=== PATIENT | male | born 1950 ===

== ENCOUNTER 2017-09-05 10:14 | Emergency (ER) | payer MEDICARE ==
[2017-09-05 10:21] VITALS: BP 168/109; PULSE 65; RESP 18; TEMP 97.7; O2SAT 98
--- NOTE | 2017-09-05 10:47 | C.PDOC ---
History Of Present Illness 67 y/o male presents to the ER complaining of minor pruritus in the left axilla which has been present for the past 1 week. Patient is also complaining of dark discoloration. Patient denies having fungal infection. Time Seen by Provider: 09/05/17 10:44 Chief Complaint (Nursing): Abnormal Skin Integrity History Per: Patient History/Exam Limitations: no limitations Onset/Duration Of Symptoms: Days Current Symptoms Are (Timing): Still Present Quality Of Symptoms: Itching Severity: Moderate Past Medical History Reviewed: Historical Data, Nursing Documentation, Vital Signs Vital Signs: Last Vital Signs Temp 97.7 F 09/05/17 10:18 Pulse 65 09/05/17 10:18 Resp 18 09/05/17 10:58 BP 168/109 H 09/05/17 10:18 Pulse Ox 98 09/05/17 12:07 - Medical History PMH: HTN Other Surgeries: Hx of surgeries Family History: States: No Known Family Hx - Social History Hx Tobacco Use: No Hx Alcohol Use: No Hx Substance Use: No - Immunization History Hx Tetanus Toxoid Vaccination: No Hx Influenza Vaccination: No Hx Pneumococcal Vaccination: No Review Of Systems Except As Marked, All Systems Reviewed And Found Negative. Constitutional: Negative for: Fever, Chills Skin: Positive for: Other (discoloration and pruritus of left axilla) Physical Exam - Physical Exam Appears: Non-toxic, No Acute Distress, Other (obese, male) Skin: Warm, Other (1 dark 6 x6 cm patch with dry and flaky leading edge, no cellulitis, no erythema) Head: Atraumatic, Normacephalic Eye(s): bilateral: Normal Inspection Nose: Normal Oral Mucosa: Moist Neck: Supple Chest: Symmetrical Extremity: Normal ROM Neurological/Psych: Oriented x3, Normal Speech, Normal Motor, Normal Sensation ED Course And Treatment O2 Sat by Pulse Oximetry: 98 (RA) Pulse Ox Interpretation: Normal Progress Note: Patient has been discharged with prescription for Nizoral cream. Medical Decision Making Medical Decision Making: dark patch with moist area and leading edge scaling c/w fungal infection high prob due to obese axillary areas Disposition Doctor Will See Patient In The: Office Counseled Patient/Family Regarding: Studies Performed, Diagnosis - Disposition Referrals: Bobo Rowell MD [Staff Provider] - Disposition: HOME/ ROUTINE Disposition Time: 10:45 Condition: GOOD Additional Instructions: inguento de ketoconazole 2% (anti-hongo) 2 veces al samuel por 2 semanas para la infeccion' de hongo en la axilla. Prescriptions: Ketoconazole 2% Cr [Nizoral] 15 applic TOP BID 14 Days #1 tube Instructions: Ringworm (DC) Forms: [employer] (Greek) Print Language: MOHAWK - Clinical Impression Clinical Impression: Body tinea - Scribe Statement The provider has reviewed the documentation as recorded by the Linnette Isaac Provider Attestation: All medical record entries made by the Jorgeibe were at my direction and personally dictated by me. I have reviewed the chart and agree that the record accurately reflects my personal performance of the history, physical exam, medical decision making, and the department course for this patient. I have also personally directed, reviewed, and agree with the discharge instructions and disposition.
== END 2017-09-05 10:59 | disposition home or self-care (01) ==
LOC: C.ER 10:14
DX: B35.4 Tinea corporis (principal)